=== PATIENT | female | born 1970 | race Caucasian/White ===

== ENCOUNTER 2018-10-02 06:46 | Day surgery (SDC) | payer OTHER ==
[2018-10-02 07:30] LABS: ADD MAN DIFF? NO
[2018-10-02 07:33] LABS: BASOPHIL # 0.1 10^3/ul (0.0-0.1); BASOPHILS % 0.6 % (0.0-2.0); EOSINOPHILS # 0.1 10^3/ul (0.0-0.5); EOSINOPHILS % 1.4 % (0.0-7.0); HEMATOCRIT 39.1 % (37.0-47.0); HEMOGLOBIN 13.5 g/dl (12.0-16.0); LYMPHOCYTES # 4.4 10^3/ul (0.8-2.9); LYMPHOCYTES % 42.5 % (15.0-51.0); MEAN CORPUSCULAR HGB CONC 34.5 g/dl (32.0-37.0); MEAN CORPUSCULAR VOLUME 86.9 fl (82.0-101.0); MEAN PLATELET VOLUME 10.2 fl (7.4-10.4); MONOCYTE # 0.6 10^3/ul (0.3-0.9); MONOCYTES % 5.7 % (0.0-11.0); NEUTROPHIL # 5.1 10^3/ul (1.6-7.5); NEUTROPHILS % 49.5 % (39.0-77.0); PLATELET COUNT 325 10^3/UL (140-415); RED CELL DISTRIBUTION WIDTH 12.4 % (11.5-14.5)
[2018-10-02 07:33] LABS: WHITE BLOOD COUNT 10.2 10^3/ul (4.8-10.8)
[2018-10-02 07:51] LABS: ALANINE AMINOTRANSFERASE 28 IU/L (13-69); ALBUMIN 3.6 g/dl (3.3-4.9); ALBUMIN/GLOBULIN RATIO 0.97; ALKALINE PHOSPHATASE 84 IU/L (42-121); ANION GAP 8 (5-13); ASPARTATE AMINO TRANSFERASE 23 IU/L (15-46); BILIRUBIN,INDIRECT 0.7 mg/dl (0-1.1); BILIRUBIN,TOTAL 0.7 mg/dl (0.2-1.3); BLOOD UREA NITROGEN 13 mg/dl (7-20); CALCIUM 8.4 mg/dl (8.4-10.2); CARBON DIOXIDE 28 mmol/L (21-31); CHLORIDE 105 mmol/L (97-110); CREATININE 0.68 mg/dl (0.44-1.00); Estimated GFR > 60 mL/min (>60); GLUCOSE 101 mg/dl (70-220); INR 0.97; POTASSIUM 3.6 mmol/L (3.5-5.1); SODIUM 141 mmol/L (135-144); TOTAL PROTEIN 7.3 g/dl (6.1-8.1)
[2018-10-02 07:52] LABS: PARTIAL THROMBOPLASTIN TIME 28.8 Sec (23.0-35.0)
[2018-10-02] MEDS ORDERED: ONDANSETRON 4 MG INJ IV (08:30)
[2018-10-02] MEDS ORDERED: FENTAnyl 50 MCG/ML VIAL IV ×2 (08:30)
[2018-10-02] MEDS ORDERED: OXYCODONE/ACETAMINOPHEN (5/325) TAB PO (08:30)
[2018-10-02] MEDS ORDERED: PROCHLORPERAZINE 10 MG INJ IV (08:30)
[2018-10-02] MEDS ORDERED: DIPHENHYDRAMINE 50 MG INJ IV (08:30)
[2018-10-02] MEDS ORDERED: MEPERIDINE 25 MG INJ IV (08:30)
[2018-10-02] MEDS ORDERED: HYDROmorphONE 1 MG/5 ML IV SYRINGE IV ×3 (08:30)
[2018-10-02] MEDS ORDERED: BUPIVACAINE 0.25% (MPF) 30 ML INJ (08:38)
[2018-10-02] MEDS ORDERED: SUCCINYLCHOLINE CHLORIDE 100 MG/5 ML SYG IV (08:59)
[2018-10-02] MEDS ORDERED: LIDOCAINE 2% (SDV) 5 ML INJ (08:59)
[2018-10-02] MEDS ORDERED: ROCURONIUM 50 MG INJ (08:59)
[2018-10-02] MEDS ORDERED: ROPIVACAINE 0.5 % 30 ML VIAL (08:59)
[2018-10-02] MEDS ORDERED: MIDAZOLAM 1 MG/ML 2 ML INJ (08:59)
[2018-10-02] MEDS ORDERED: FENTAnyl 50 MCG/ML VIAL (08:59)
[2018-10-02] MEDS ORDERED: PROPOFOL 20 ML (08:59)
[2018-10-02] MEDS ORDERED: CEFAZOLIN 1 GM INJ (09:18)
[2018-10-02] MEDS ORDERED: DEXAMETHASONE 4 MG/ML 5 ML INJ (09:18)
[2018-10-02] MEDS ORDERED: FAMOTIDINE 20 MG INJ (09:18)
[2018-10-02] MEDS ORDERED: ONDANSETRON 4 MG INJ (09:18)
[2018-10-02] MEDS ORDERED: SOD CHLORIDE 0.9% 1,000 ML IV (09:30)
[2018-10-02] MEDS ORDERED: CEFAZOLIN 2 GM/50 ML (PMX) 50 ML IVPB (09:30)
[2018-10-02] MEDS ORDERED: NEOSTIGMINE 3 MG/3 ML SYRINGE ×2 (09:47→09:51)
[2018-10-02] MEDS ORDERED: GLYCOPYRROLATE 0.4 MG INJ ×2 (09:47→09:51)
[2018-10-02] MEDS: FENTAnyl 50 MCG/ML VIAL IV ×4 (10:24→11:09)
[2018-10-02] MEDS ORDERED: LABETALOL HCL 20MG INJ IV (10:30)
[2018-10-02] MEDS ORDERED: hydrALAzine 20 MG INJ IV (10:30)
[2018-10-02] MEDS: HYDROCODONE/APAP (5/325) TAB PO (11:56)
[2018-10-02] MEDS: POLYMYXIN/BACITRACIN 1L IRRIG IRR (13:35)
== END 2018-10-02 12:33 | disposition home or self-care (01) ==
LOC: SDS 06:46
DX: K43.0 Incisional hernia with obstruction, without gangrene (principal); I10 Essential (primary) hypertension; E78.5 Hyperlipidemia, unspecified
CPT/HCPCS: 49655; 71045; 80053; 84703; 85025; 85610; 85730; 93005